=== PATIENT | male | born 1965 | race Caucasian/White ===

== ENCOUNTER 2016-08-02 06:10 | Emergency (ER) | payer SELFPAY ==
[~2016-08-02] VITALS: Ht 177.8 cm; Wt 83.9 kg
[2016-08-02 06:17] VITALS: BP 118/77
== END 2016-08-02 07:19 | disposition home or self-care (01) ==
LOC: ER 06:10
DX: S20.211A Contusion of right front wall of thorax, initial encounter (principal); W19.XXXA Unspecified fall, initial encounter; Y93.9 Activity, unspecified; Y92.9 Unspecified place or not applicable; Y99.8 Other external cause status
CPT/HCPCS: 71100; 99284; A4606; Z7610